=== PATIENT | male | born 1940 | race Caucasian/White ===

== ENCOUNTER 2017-02-03 10:24 | Emergency (ER) | payer OTHER ==
[2017-02-03 10:41] VITALS: TEMP 97.9; O2SAT 94
[2017-02-03] MEDS ORDERED: ASPIRIN 81 MG CHEWABLE TAB PO ONE (11:03)
--- NOTE | 2017-02-03 11:03 | EDPHY ---
H & P Time Seen by Provider: 02/03/17 10:50 HPI/ROS: CHIEF COMPLAINT: Nausea, vomiting, dizziness HISTORY OF PRESENT ILLNESS: Patient is a 76-year-old male who presents to the emergency department with multiple complaints. Patient is visiting from [place]. He went on a cruise still lasted 8 days in [place]. Subsequently went to [facility]. There he was feeling sinus congestion and was started on amoxicillin. He flew down to [place] and is staying with a friend. He arrived 2 nights ago. Yesterday dropped her datapine part. Once they arrived to the park he felt "awful." He developed dizziness. He had multiple episodes of nausea and vomiting. He stayed at the park for about an hour then returned back to [place]. He denies shortness of breath or cough. He has no chest pain. He had him describes a mild headache that is intermittent. His dizziness has improved. He stills feels mildly nauseated. He reports nasal congestion. No leg pain or swelling. REVIEW OF SYSTEMS: My complete review of systems is negative except as mentioned in the HPI. Past Medical/Surgical History: Negative Past surgical history: Shoulder surgery Social history: The patient is from [facility]. He does not smoke Smoking Status: Never smoked Physical Exam: Vitals noted. Afebrile. GENERAL: Well-appearing, in no acute distress, alert. HEENT: Eyes normal to inspection, normal pharynx, no signs of dehydration. Normal TMs bilaterally NECK: No thyromegaly, no lymphadenopathy, supple. RESPIRATORY: Clear to auscultation bilaterally, no rales, rhonchi or wheezing. CVS: Regular rate and rhythm, no rubs, murmurs, or gallops. ABDOMEN: Soft, nontender, nondistended, no organomegaly. BACK: Normal to inspection, no CVA tenderness. SKIN: Normal color, no rash, warm, dry. No pallor. EXTREMITIES: No pedal edema, no calf tenderness, no Homans sign or cords, no joint swelling. NEURO/PSYCH: Higher functions: Alert and Oriented x3. Normal speech and cognition. Normal mood and affect. Cranial nerves: Normal as tested. Cerebellar: Normal as tested. Good finger to nose, good [id number], normal gait. Peripheral exam: Normal motor exam. Normal sensation. Normal reflexes. Constitutional: Initial Vital Signs Temperature (C) 36.6 C 02/03/17 10:39 Heart Rate 52 L 02/03/17 10:39 Respiratory Rate 18 02/03/17 10:39 Blood Pressure 149/80 H 02/03/17 10:39 O2 Sat (%) 94 02/03/17 10:39 O2 Delivery Mode Room Air Allergies/Adverse Reactions: panadeine forte Allergy (Uncoded 02/03/17 10:38) Vomiting Home Medications: Medication Instructions Recorded Amox-Clav 500-125 mg Tablet 02/03/17 Guaiatussin AC Liquid 02/03/17 Meclizine HCl [Meclizine HCl 25 mg 25 mg PO TID #11 tab 02/03/17 (RX,OTC)] Ondansetron Odt [Zofran Odt 4 mg 4 mg PO Q4PRN PRN #7 tab 02/03/17 (*)] Medical Decision Making - Diagnostics Imaging Results: Imaging Impressions Head CT 02/03/17 11:04 Impression: 1. No significant intracranial abnormality seen. 2. 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 Findings discussed with Peg Holloway M.D. at 12:05 hour, 02/03/2017. ED Course/Re-evaluation: In the emergency department I discussed possible etiologies with the patient. I answered all his questions. Laboratory studies, chest x-ray, EKG and head CT were ordered. Patient's CBC and chemistry were unremarkable. EKG: Sinus arrhythmia 53. Normal axis. Normal intervals. LVH. Q-wave II, III , aVF Head CT: No acute disease noted. Please refer the dictated report by the radiologist. I rechecked the patient on numerous occasions while here. He felt better during his stay. He had no further episodes of dizziness. He had no nausea or vomiting in the emergency department. On recheck he had no chest pain. Abdomen is soft, nontender nondistended. Patient had a nonfocal neuro exam. Patient was given warnings prior to leaving. He will return with worsening symptoms. Differential Diagnosis: My differential includes but is not limited to HACE, HAPE, ACS, AMI, CHF, pneumonia, sinusitis, electrolyte abnormality, sugar abnormality, bacteremia, sepsis, CVA, peripheral vertigo Patient appeared well on his initial on recheck exam. I doubt acute CVA. I do not think the patient's symptoms is secondary to ACS or acute IA. I think it is unlikely that his current symptoms are from altitude illness. - Data Points Laboratory Results: Laboratory Results 02/03/17 10:53 02/03/17 10:35 02/03/17 02/03/17 10:53 10:35 WBC 6.87 10^3/uL 10^3/uL (3.80-9.50) RBC 5.15 10^6/uL 10^6/uL (4.40-6.38) Hgb 15.4 g/dL g/dL (13.7-17.5) Hct 46.8 % % (40.0-51.0) MCV 90.9 fL fL (81.5-99.8) MCH 29.9 pg pg (27.9-34.1) MCHC 32.9 g/dL g/dL (32.4-36.7) RDW 12.5 % % (11.5-15.2) Plt Count 262 10^3/uL 10^3/uL (150-400) MPV 10.2 fL fL (8.7-11.7) Neut % (Auto) 68.9 % % (39.3-74.2) Lymph % (Auto) 18.6 % % (15.0-45.0) Alfalfa % (Auto) 11.4 % % (4.5-13.0) Eos % (Auto) 0.1 % L % (0.6-7.6) Baso % (Auto) 0.3 % % (0.3-1.7) Nucleat RBC Rel Count 0.0 % % (0.0-0.2) Absolute Neuts (auto) 4.73 10^3/uL 10^3/uL (1.70-6.50) Absolute Lymphs (auto) 1.28 10^3/uL 10^3/uL (1.00-3.00) Absolute Monos (auto) 0.78 10^3/uL 10^3/uL (0.30-0.80) Absolute Eos (auto) 0.01 10^3/uL L 10^3/uL (0.03-0.40) Absolute Basos (auto) 0.02 10^3/uL 10^3/uL (0.02-0.10) Absolute Nucleated RBC 0.00 10^3/uL 10^3/uL (0-0.01) Immature Gran % 0.7 % % (0.0-1.1) Immature Gran # 0.05 10^3/uL 10^3/uL (0.00-0.10) Sodium 141 mEq/L mEq/L (134-144) Potassium 4.5 mEq/L mEq/L (3.5-5.2) Chloride 106 mEq/L mEq/L (97-110) Carbon Dioxide 21 mEq/l L mEq/l (22-31) Anion Gap 14 mEq/L mEq/L (8-16) BUN 16 mg/dL mg/dL (7-23) Creatinine 1.1 mg/dL mg/dL (0.7-1.3) Estimated GFR > 60 Glucose 116 mg/dL H mg/dL (70-100) Calcium 9.5 mg/dL mg/dL (8.5-10.4) Total Bilirubin 1.1 mg/dL mg/dL (0.1-1.4) Conjugated Bilirubin 0.3 mg/dL mg/dL (0.0-0.5) Unconjugated Bilirubin 0.8 mg/dL mg/dL (0.0-1.1) AST 50 IU/L IU/L (17-59) ALT 49 IU/L IU/L (21-72) Alkaline Phosphatase 112 IU/L IU/L (38-126) Troponin I < 0.012 ng/mL ng/mL (0-0.034) NT-Pro-B Natriuret Pep 131 pg/mL pg/mL (0-450) Total Protein 8.0 g/dL g/dL (6.3-8.2) Albumin 4.6 g/dL g/dL (3.5-5.0) Lipase 105.0 IU/L IU/L (23-300) Medications Given: Discontinued Medications Aspirin (Aspirin) 324 mg PO EDNOW ONE Stop: 02/03/17 11:04 Last Admin: 02/03/17 11:25 Dose: 324 mg Sodium Chloride (Ns) 500 mls @ 0 mls/hr IV ONCE ONE PRN Reason: Wide Open Stop: 02/03/17 11:05 Last Admin: 02/03/17 11:15 Dose: 500 mls Meclizine HCl (Meclizine Hcl) 25 mg PO EDNOW ONE Stop: 02/03/17 11:05 Last Admin: 02/03/17 11:25 Dose: 25 mg Ondansetron HCl (Zofran) 4 mg IVP EDNOW ONE Stop: 02/03/17 11:05 Last Admin: 02/03/17 11:15 Dose: 4 mg Departure - Departure Disposition: Home, Routine, Self-Care Clinical Impression: Dizziness Vomiting Qualifiers: Vomiting type: unspecified Vomiting Intractability: non-intractable Nausea presence: with nausea Qualified Code(s): R11.2 - Nausea with vomiting, unspecified Condition: Good Instructions: Acute Nausea and Vomiting (ED), Dizziness (ED) Additional Instructions: Return with increasing dizziness, vomiting, abdominal pain, chest pain, shortness of breath or any other concerns. Referrals: Oscar Molina [Doctor of Osteopathy] - As per Instructions Prescriptions: Meclizine HCl [Meclizine HCl 25 mg (RX,OTC)] 25 mg PO TID #11 tab Ondansetron Odt [Zofran Odt 4 mg (*)] 4 mg PO Q4PRN PRN #7 tab PRN Reason: For Nausea & Vomiting
[2017-02-03] MEDS ORDERED: ONDANSETRON 4 MG/2 ML VIAL IVP ONE (11:04)
[2017-02-03] MEDS ORDERED: MECLIZINE HCL 25 MG TAB PO ONE (11:04)
[2017-02-03] MEDS ORDERED: NS 500 ML IV ONE (11:04)
[2017-02-03 11:13] LABS: % IMMATURE GRANULYOCYTES 0.7 % (0.0-1.1); ABSOLUTE IMMATURE GRANULOCYTES 0.05 10^3/uL (0.00-0.10); ADD DIFF? NO; ADD MORPH? NO; ADD SCAN? NO; ATYPICAL LYMPHOCYTE FLAG 70 (0-99); FRAGMENT RBC FLAG 0 (0-99); HEMATOCRIT 46.8 % (40.0-51.0); HEMOGLOBIN 15.4 g/dL (13.7-17.5); LEFT SHIFT FLG 0 (0-99); LIPEMIA HEMOLYSIS FLAG 80 (0-99); MEAN CELL HEMOGLOBIN 29.9 pg (27.9-34.1); MEAN CELL HEMOGLOBIN CONCENTR. 32.9 g/dL (32.4-36.7); MEAN CELL VOLUME 90.9 fL (81.5-99.8); MEAN PLATELET VOLUME 10.2 fL (8.7-11.7); PLATELET CLUMPS FLAG 0 (0-99); PLATELET COUNT 262 10^3/uL (150-400); RED BLOOD CELL COUNT 5.15 10^6/uL (4.40-6.38); RED CELL DISTRIBUTION WIDTH 12.5 % (11.5-15.2)
[2017-02-03 11:17] LABS: ALANINE AMINOTRANSFERASE 49 IU/L (21-72); ALBUMIN 4.6 g/dL (3.5-5.0); ALKALINE PHOSPHATASE 112 IU/L (38-126); ANION GAP 14 mEq/L (8-16); ASPARTATE AMINOTRANSFERASE 50 IU/L (17-59); BILIRUBIN,TOTAL 1.1 mg/dL (0.1-1.4); BILIRUBIN-CONJUGATED 0.3 mg/dL (0.0-0.5); BILIRUBIN-UNCONJUGATED 0.8 mg/dL (0.0-1.1); CALCIUM 9.5 mg/dL (8.5-10.4); CARBON DIOXIDE 21 mEq/l (22-31); CHLORIDE 106 mEq/L (97-110); CREATININE 1.1 mg/dL (0.7-1.3); GLOMERULAR FILTRATION RATE > 60; GLUCOSE 116 mg/dL (70-100); POTASSIUM 4.5 mEq/L (3.5-5.2); SODIUM 141 mEq/L (134-144)
--- NOTE | 2017-02-03 11:21 | CPEKG ---
Heart Rate: 53 RR Interval: 1132 P-R Interval: 152 QRSD Interval: 114 QT Interval: 472 QTC Interval: 444 P Carpenter: 74 QRS Carpenter: 79 T Wave Carpenter: 66 EKG Severity - ABNORMAL ECG - EKG Impression: SINUS ARRHYTHMIA, RATE 44-64 EKG Impression: NONSPECIFIC INTRAVENTRICULAR CONDUCTION DELAY EKG Impression: PROBABLE LEFT VENTRICULAR HYPERTROPHY EKG Impression: CONSIDER ANTERIOR INFARCT Electronically Signed By: Peg Holloway 03-Feb-2017 15:05:57
[2017-02-03 11:30] LABS: TROPONIN I < 0.012 ng/mL (0-0.034)
[2017-02-03 13:27] VITALS: BP 117/77; PULSE 59; RESP 16
== END 2017-02-03 13:26 | disposition home or self-care (01) ==
DX: R11.2 Nausea with vomiting, unspecified (principal); R42 Dizziness and giddiness
CPT/HCPCS: 96374; J2405